=== PATIENT | female | born 1960 | race African-American/Black ===

== ENCOUNTER 2024-02-21 09:44 | Outpatient (CLI) | payer MEDICARE, SELFPAY ==
[2024-02-21 10:14] LABS: Hematocrit 40.9 % (37.0-47.0); Hemoglobin 13.5 g/dL (12.0-15.0); Mean Corpuscular Hemoglobin 30.8 pg (26-34); Mean Corpuscular Volume 93.4 fl (80-100); Mean Platelet Volume 9.8 fl (7.4-10.4); Platelet Count Result 336 k/mm3 (150-375); Red Blood Count 4.38 M/mm3 (4.2-5.4); Red Cell Distribution Width 13.3 % (11.5-14.5); White Blood Count 10.6 K/mm3 (4.5-10.0)
[2024-02-21 10:29] LABS: Alanine Aminotransferase 12 U/L (6-35); Albumin Level 4.4 g/dL (3.5-5.1); Alkaline Phosphatase 48 U/L (38-126); Anion Gap 8 mmol/L (4-12); Aspartate Amino Transferase 28 U/L (14-36); Bilirubin,Total 0.5 mg/dL (0.2-1.3); Blood Urea Nitrogen 27 mg/dL (7-17); Calcium 9.3 mg/dL (8.4-10.2); Carbon Dioxide 28 mmol/L (22-30); Chloride 101 mmol/L (98-107); Cholesterol 262 mg/dL (0-200); Estimated Glomerular Filt Rate > 60; Glucose 109 mg/dL (65-110); HDL Direct 73 mg/dL; Potassium 3.7 mmol/L (3.4-5.0); Sodium 137 mmol/L (137-145); Triglycerides 124 mg/dL (<150)
[2024-02-21 10:41] LABS: LDL Cholesterol Direct 115 mg/dL
[2024-02-21 10:59] LABS: Thyroid Stimulating Hormone 0.935 uIU/mL (0.465-4.680)
== END 2024-02-21 09:45 | disposition home or self-care (01) ==
LOC: ANHLAB 09:46
PROVIDERS: PCP Family Medicine; Visit Provider Nurse Practitioner Family
DX: I10 Essential (primary) hypertension (principal); Z13.29 Encounter for screening for other suspected endocrine disorder; K50.90 Crohn's disease, unspecified, without complications
CPT/HCPCS: 36415; 80053; 80061; 84443; 85027

== ENCOUNTER 2024-09-27 13:58 | Outpatient (CLI) | payer MEDICARE, SELFPAY ==
--- NOTE | ~2024-09-27 | MM_ITS ---
EXAMINATION: MM screening [facility] BI w cassidy HISTORY: Screening TECHNIQUE: Craniocaudal and mediolateral oblique 3-D tomosynthesis images were obtained and synthetic 2-D images were generated. CAD analysis was submitted and interpreted. COMPARISON: 07/08/2010 and 05/21/2009 BREAST PARENCHYMAL COMPOSITION: There are scattered areas of fibroglandular density. FINDINGS: Punctate and bulky calcifications are detected bilaterally, stable and benign in appearance . Stable parenchymal pattern without suspicious microcalcifications, architectural distortion, discrete masses or significant asymmetry. IMPRESSION: 1. No mammographic/tomographic evidence of malignancy. 2. Recommend routine screening mammography in one year. BI-RADS Category 2: Benign finding(s). Reviewed, dictated and finalized at location A. R TRIMMER
--- OUTSIDE RECORDS SUMMARY | 2024-09-27 15:17 | XMS_ITS | Continuity of Care Document ---
Author Organization [employer] Address [address] [place] [address] Phone Care Team Providers Care Tools Developer Name Role Phone Netta Mukherjee Unavailable Unavailab le Allergies, Adverse Reactions, Alerts Substance Reaction Status Criticality PENICILLIN Active No Information Medications Medication Instructions Dosage Effective Dates (start - stop) Status Comments mesalamine 1.2 gram tablet,delayed release TAKE 2 TABLETS BY MOUTH ONCE DAILY WITH A MEAL - Active Dr. Micah Pink paroxetine 30 mg tablet Take 1 tablet by mouth once daily - Active Dr. Micah Pink Zyrtec 10 mg tablet take 1 tablet by oral route every day 10 MG - Active triamterene 37.5 mg-hydrochlorothia zide 25 mg tablet take 1 tablet by oral route every day 1 tablet - Active Cartia XT 180 mg capsule,extended release take 1 capsule by oral route every day 180 MG - Active Calcium 600 600 mg calcium (1,500 mg) tablet take 1 capsule by oral route 2 times every day 1 capsule - Active Procedures Procedure Date POTASSIUM , K (SERUM) ROUTINE VENIPUNCTURE C-REACTIVE PROTEIN (CRP) CBC, INC PLATELETS AND DIFFERENTIAL COMPREHEN METABOLIC PANEL CMP ROUTINE VENIPUNCTURE OFFICE [id number] BODY MASS INDEX DOCD SYST BP GE 130 - 139MM HG DIAST BP 80-89 MM HG OFFICE [id number] ROUTINE VENIPUNCTURE COLONOSCOPY AND BIOPSY OFFICE [id number] BODY MASS INDEX DOCD SYST BP GE 130 - 139MM HG DIAST BP 80-89 MM HG OFFICE [id number] Advance Directives Directive Yes / No Effective Date File Name No Information Encounters Encounter Description Practice Location Reason(s) For Visit Diagnoses Date Provider Providers Copied on Encounter [email or web address], [address], [place], [place], [id number] , tel: [phone] [facility] No Information Dec- 4 Kal Chadwick. [address] [place], [place], [id number] , [place]. tel: [phone] [email or web address], [address], [place], [place], [address] , tel: [phone] [facility] Hypokalemia Calvin- 4 Kal Chadwick. [address] [place], [place], [id number] , [place]. tel: [phone] Referring Provider: M[address], [place], [address]. tel:[phone] [email or web address], [address], [place], [place], [address] , [place] tel: [phone] [facility] Low blood potassium Calvin-0 4 Kal Chadwick. [address] [place], [place], [id number] , [place]. tel: [phone] OFFICE DQUVJ-IAI-EEB ANDED [email or web address], [address], [place], [place], [address] , [place] tel: [phone] [facility] Crohn's disease (chief complaint) Crohn's disease of large intestine without complications Calvin0 4 Kal Chadwick. [address] [place], [place], [id number] , . tel: [phone] Referring Provider: [address], [place], [address]. tel:[phone] OFFICE SVIVI-QKG-NLW ITED [facility], [address], [place], [place], [address] , tel: [phone] [facility] GI problems (Crohn's colitis) (chief complaint) Crohn's disease of large intestine without complications 3 Joesph Gary. [address] [place] [address], [id number] , [place]. tel: [phone] Referring Provider: Micah Pink, [address] [place] [address], [address]. tel:[phone] [facility], [address], [place], [place], [address] , [place] tel: [phone] [facility] [place] No Information 2 Joesph Micah. [address] [place] [address], [id number] , [place]. tel: [phone] Referring Provider: [place], [address]. tel:[phone] OFFICE BUDKO-NVY-MOL [facility], [address], [place], [place], [address] , [place] tel: [phone] [facility] Crohn's colitis (chief complaint) Crohn's disease of large intestine without complications 1 Joesph Obrien. [address] [place] [address], [id number] , [place]. tel: [phone] Referring Provider: [place], [address]. tel:[phone] OFFICE OMSKO-LTE-RQF [facility], [address], [place], [place], [address] , [place] tel: [phone] [facility] Crohn's (chief complaint) Crohn's disease of large intestine without complications 0 Joesph Gary. [address] [place] [address], [id number] , [place]. tel: [phone] Referring Provider: Salinas Vizcaino, [address] [place], [address]. tel:[phone] [email or web address], [address], [place], [place], [address] , tel: [phone] [facility] Crohn's disease of large intestine without complications 7 Joesph Obrien. [address] [place] [address], [id number] , . tel: [phone] Referring Provider: Micah Pink, [address] [place] [address], [address]. tel:[phone] [email or web address], [address], [place], [place], [address] , tel: [phone] [facility] Crohn's colitis 5 Zain Tariq. [address] [place] [address], [id number] , . tel: [phone] Referring Provider: Marciano Benton, [address] [place] [address], [address]. tel:[phone] Family History Family Member Type Diagnosis Age At Onset No Information Payers Payer name Insurance type Covered alliance party ID Authorarmindaa chuck(s) [facility] ADVANTAGE PPO [id number] Social History Type Description Quantity Date Captured Comments Alcohol Use Details Unknown Caffeine Use Details Unknown Tobacco Use Status No Information Smoking Status No Information Sex Female Chief Complaint And Reason For Visit No Information Reason For Referral Reason For Referral No Information History Of Present Illness Encounter Date Complaint History Of Prese nt Illness Crohn's disease Comments: 63 yea r old female that presents for Crohn's disease. She is currently on mesalamine daily, denies any current problems with her Crohn's. Last colon in 2021, due in 2025. GI problems (Crohn's colitis) St able on mesalamineNo major GI issuesNo bleeding, diarrhea or weight loss.Needs meds refilledUp to date on colonoscopies. Crohn's colitis No complaintsDoi ng wellNo bleedingNo diarrheaOn MesalamineDue for Colonoscopy Crohn's History of Crohn 's colitisLast colon 01/2018Due for follow up colon 01/2021\On Generic LialdaNo DiarrheaNo CrampingNo bleedingFeels good Functional Status Date Functional Assessmen t No Information Instructions Date Instruction Additional Infor meet Continue with kiko avilez medicationsFollow up in the office in one year, call sooner for any problemsYou will be due in 2025 for your next colonoscopy Related to Crohn's disease of large intestine without complications Continue present med sLabs done, will call with results when availableFollow up in one year, call if problems. Related to Crohn's disease of large intestine without complications Handout Continue present med s (mesalamine)Will send letter for colonoscopy in 6 months. Related to Crohn's disease of large intestine without complications Handout Continue present med sFollow up colonoscopy due 01/2021 Related to Crohn's disease of large intestine without complications Handout Assessments Type Assessment Date No Information Patient Care Teams Name Effective Dates (start - stop) Status Members No Information
== END 2024-09-27 13:59 | disposition home or self-care (01) ==
LOC: ANHIMG 14:00
PROVIDERS: PCP Family Medicine; Visit Provider Nurse Practitioner Obstetrics & Gynecology
DX: Z12.31 Encounter for screening mammogram for malignant neoplasm of breast (principal)
CPT/HCPCS: 77063; 77067

== ENCOUNTER 2025-03-12 09:18 | Outpatient (CLI) | payer MEDICARE, SELFPAY ==
--- OUTSIDE RECORDS SUMMARY | 2024-11-25 19:00 | XMS_ITS | Continuity of Care Document ---
Author Organization [employer] Address [address] [place] [address] Phone Care Team Providers Care Licensed Therapist Name Role Phone Netta Mukherjee Unavailable Unavailab le Allergies, Adverse Reactions, Alerts Substance Reaction Status Criticality PENICILLIN Active No Information Medications Medication Instructions Dosage Effective Dates (start - stop) Status Comments famotidine 20 mg tablet take 1 tablet by oral route 2 times every day 20 MG - Active mesalamine 1.2 gram tablet,delayed release TAKE 2 [...] 1 capsule - Active Procedures Procedure Date MED LIST DOCD IN RCRD OFFICE [id number] BODY MASS INDEX DOCD SYST BP >= 140 MM HG6 IT DIAST BP 80-89 MM HG POTASSIUM , K (SERUM) ROUTINE VENIPUNCTURE C-REACTIVE PROTEIN (CRP) CBC, INC PLATELETS AND DIFFERENTIAL COMPREHEN METABOLIC PANEL CMP ROUTINE VENIPUNCTURE OFFICE [id number] BODY MASS INDEX DOCD SYST BP GE 130 - 139MM HG DIAST BP 80-89 MM HG OFFICE [id number] ROUTINE VENIPUNCTURE COLONOSCOPY AND BIOPSY OFFICE [id number] BODY MASS INDEX DOCD SYST BP GE 130 - 139MM HG DIAST BP 80-89 MM HG OFFICE [id number] Advance Directives Directive Yes / No Effective Date File Name No Information Encounters Encounter Description Practice Location Reason(s) For Visit Diagnoses Date Provider Providers Copied on Encounter OFFICE [id number]-WJT-SXN ANDED [facility], [address], [place], [place], [id number] , tel: [phone] [facility] Crohn's disease (chief complaint) Crohn's disease of large intestine without complications 5 Kal Chadwick. [address] [place], [place], [address] , . tel: [phone] Referring Provider: M[address], [place], [address]. tel:[id number] [place] [address], [id number] , tel: [phone] [facility] Hypokalemia 4 Kal Chadwick. [address] [place], [place], [address] , . tel:[phone] Referring Provider: M[address], [place], [address]. tel:[phone] [facility], [address] [place] [address], [id number] , tel: [phone] [facility] Low blood potassium 4 Kal Chadwick. [address] [place] [address], [id number] , [place]. tel: [phone] OFFICE LJLQE-LPX-EOJ ANDED [facility], [address], [place], [place], [address] , [place] tel: [phone] [facility] Crohn's disease (chief complaint) Crohn's disease of large intestine without complications 4 Kal Chadwick. [address] [place] [address], [id number] , [place]. tel: [phone] Referring Provider: Johnny Sharpe, [address] , [place], [address]. tel:[phone] OFFICE YDMOY-MQM-YRN ITED [facility], [address], [place], [place], [address] , [place] tel: [phone] [facility] GI problems (Crohn's colitis) (chief complaint) Crohn's disease of large intestine without complications 3 Joesph Obrien. [address] [place] [address], [id number] , [place]. tel: [phone] Referring Provider: Micah Pink, [address] [place] [address], [address]. tel:[phone] [facility] [address], [place], [place], [address] , [place] tel: [phone] [facility] No Information 2 Joesph Obrien. [address] [place] [address], [id number] , [place]. tel: [phone] Referring Provider: Salinas Vizcaino, [address] [place], [address]. tel:[phone] OFFICE JQECY-OTI-PTZ [facility] [address], [place], [id number] , [place] tel: [phone] [facility] Crohn's colitis (chief complaint) Crohn's disease of large intestine without complications 1 Joesph Obrein. [address] [place] [address], [id number] , . tel: [phone] Referring Provider: Salinas Vizcaino, [address], [place], [address]. tel:[phone] OFFICE WPSPR-JJI-WDY ANDED [facility], [address], [place], [place], [address] , [place] tel: [phone] [facility] Crohn's (chief complaint) Crohn's disease of large intestine without complications 8 0 Joesph Obrien. [address] [place] [address], [id number] , [place]. tel: [phone] Referring Provider: Salinas Vizcaino, [address] [place], [address]. [phone] [facility], [address], [place], [place], [address] , [place] tel: [phone] [facility] Crohn's disease of large intestine without complications 0 7 Joesph Obrien. [address] [place] [address], [id number] , [place]. tel: [phone] Referring Provider: Micah Pink, [address] [place] [address], [address]. tel:[phone] [facility], [address], [place], [place], [address] , [place] tel: [phone] [facility] Crohn's colitis 5 Zain Tariq. [address] [place] [address], [id number] , [place]. tel: [phone] Referring Provider: Marciano Benton, [address] [place] [address], [address]. tel:[phone] Family History Family Member Type Diagnosis Age At Onset No Information Payers Payer name Insurance type Covered green party ID Authoriza tion(s) [facility] ADVANTAGE PPO [place] [id number] Social History Type Description Quantity Date Captured Comments Alcohol Use Details Unknown Caffeine Use Details Unknown Tobacco Use Status No Information Smoking Status Former smoker Non-Smoking Tobacco Use Details : No Details Available : No Details Available Sex Female Vital Signs Date / Time: Height Weight BMI Pulse Rate Blood Pressure Temperature Respiratory Rate Body Surface Area Head Circumference Head Circ. Percentile Wt./Julian. Percentile BMI percentile Pulse Ox Inhaled Ox 1:18 PM 67.00 in 85.729 kg (189.00 lbs) 29.6 0 kg/m eter (2) 71 /min 151/81 mm[Hg] 18 /min Chief Complaint And Reason For Visit From encounter dated '11/26/2024 00:00'. Crohn's disease (chief complaint) Reason For Referral Reason For Referral No Information History Of Present Illness Encounter Date Complaint History Of Prese nt Illness Comments: 64 yea r old female that presents for follow up for Crohn's. She is currently doing well with her symptoms, denies any flares of Crohn's disease. Up to date on colon Crohn's disease Crohn's disease Comments: 63 yea r old [...] Date Instruction Additional Infor meet Continue with noemi londono urrent medicationsFollow up in the office in one year, call sooner for problemsYou will be due next year for a colonoscopy Related to Crohn's disease of large intestine without complications Continue with kiko avilez medicationsFollow up in [...] without complications Handout Assessments Type Assessment Date assessment Crohn's disease of large intesti ne without complications Mental Status Date Cognitive Assessment Orientation - [place] ed to time, place, person, situation. Patient Care Teams Name Effective Dates (start - stop) Status Members No Information
[2025-03-12 10:06] LABS: Hematocrit 37.0 % (37.0-47.0); Hemoglobin 12.0 g/dL (12.0-15.0); Mean Corpuscular HGB Conc 32.4 g/dl (32-36); Mean Corpuscular Hemoglobin 29.6 pg (26-34); Mean Corpuscular Volume 91.4 fl (80-100); Platelet Count Result 307 k/mm3 (150-375); Red Blood Count 4.05 M/mm3 (4.2-5.4); White Blood Count 9.8 K/mm3 (4.5-10.0)
[2025-03-12 10:36] LABS: Alanine Aminotransferase 16 U/L (6-35); Albumin Level 4.2 g/dL (3.5-5.1); Alkaline Phosphatase 55 U/L (38-126); Anion Gap 5 mmol/L (4-12); Aspartate Amino Transferase 35 U/L (14-36); Bilirubin,Total 0.4 mg/dL (0.2-1.3); Blood Urea Nitrogen 22 mg/dL (7-17); Calcium 9.6 mg/dL (8.4-10.2); Carbon Dioxide 29 mmol/L (22-30); Chloride 105 mmol/L (98-107); Cholesterol 205 mg/dL (0-200); Estimated Glomerular Filt Rate 57; Glucose 110 mg/dL (65-110); HDL Direct 61 mg/dL; Potassium 3.7 mmol/L (3.4-5.0); Sodium 139 mmol/L (137-145); Total Protein 7.1 g/dL (6.3-8.2); Triglycerides 99 mg/dL (<150)
[2025-03-12 11:11] LABS: Thyroid Stimulating Hormone 0.513 uIU/mL (0.465-4.680)
== END 2025-03-12 09:19 | disposition home or self-care (01) ==
LOC: ANHLAB 09:21
PROVIDERS: PCP Family Medicine; Visit Provider Nurse Practitioner Family
DX: I10 Essential (primary) hypertension (principal); Z13.29 Encounter for screening for other suspected endocrine disorder; K50.90 Crohn's disease, unspecified, without complications; E55.9 Vitamin D deficiency, unspecified
CPT/HCPCS: 36415; 80053; 80061; 82306; 84443; 85027